=== PATIENT | female | born 1950 | race Caucasian/White ===

== ENCOUNTER 2019-01-29 12:57 | Outpatient (CLI) | payer MEDICARE ==
--- NOTE | 2019-01-29 13:22 | RAD ---
XR Chest Pa Lat @ [facility] History: Dyspnea Comparison: Radiograph 2017 Findings: Port catheter tip sits at the inferior SVC. Heart size mildly enlarged. Mild dilatation of the pulmonary arteries. No pneumothorax. Old left posterior second rib fracture. Peripheral pleural thickening along both upper hemithoraces. No acute osseous abnormality. Impression: Similar examination of the chest. No acute intrathoracic abnormality.
== END 2019-01-29 12:58 | disposition home or self-care (01) ==
LOC: RAD 12:57
PROVIDERS: ATTEND Internal Medicine Critical Care Medicine
DX: R06.00 Dyspnea, unspecified (principal)
CPT/HCPCS: 71046